=== PATIENT | female | born 1980 | race Caucasian/White ===

== ENCOUNTER 2018-08-12 08:41 | Inpatient (IN) | payer MEDICAID, OTHER ==
[2018-08-12] MEDS ORDERED: PROMETHAZINE HCL 25 MG/ML INJ IVP ONE (08:58)
[2018-08-12] MEDS ORDERED: NS 1,000 ML IV ONE ×3 (08:58→11:05)
--- NOTE | 2018-08-12 08:58 | EDPHY ---
H & P Stated Complaint: Fever, chills, nausea started about midnight, pt concerned for TSS Source: Patient Exam Limitations: No limitations - Personal History LMP (Females 10-55): Now - Medical/Surgical History Hx Asthma: No Hx Chronic Respiratory Disease: No Hx Diabetes: No Hx Cardiac Disease: No Hx Renal Disease: No Hx Cirrhosis: No Hx Alcoholism: No Hx HIV/AIDS: No Hx Splenectomy or Spleen Trauma: No Other PMH: ENDOMETRIOSIS - Social History Smoking Status: Never smoked Time Seen by Provider: 08/12/18 08:52 HPI/ROS: HPI: This is a 37-year-old female who presents with Chief Complaint: Generalized body aches, pelvic pain, rash Location: Body, pelvic Quality: Aches and pains Duration: Starting last night around midnight Signs and Symptoms: no fever, + chills, + nausea, no vomiting, no hematemesis, no blood in stool, no abdominal bloating, no diarrhea, no back pain, no urinary symptoms, no vaginal discharge, no indigestion, no chest pain, no shortness of breath Timing: Acute onset, constant Severity: Moderate to severe Context: Patient, G0, reports that around midnight she started to experience generalized body aches, no denies joint pain, accompanied by subjective fever and chills "all night long." She also had lower pelvic pain that was bilateral in nature and quite severe. She has a history of endometriosis and left ovary removal. She does not take any control pills. She is on day 4 of 5 of her menses. Last night before bed she placed a Super absorbent tampon and removed approximately 4 hr later. Upon removal it was "dry." She also woke up this morning with generalized redness to her torso. Denies hives, itchiness, easy bleeding, urinary symptoms, back pain, vaginal discharge. She is concerned that she may have toxic shock syndrome. She is followed by her primary care provider in [place], [place]. Modifying Factors: Took ibuprofen and Tylenol with mild transient relief of symptoms Comment: ROS: A comprehensive 10 system review of systems is otherwise negative aside from elements mentioned in the history of present illness. MEDICAL/SURGICAL/SOCIAL HISTORY: Medical history: Endometriosis, attention deficit hyperactivity disorder Surgical history: Left ovary removal Social history: Never smoked. Employed. Family history noncontributory. CONSTITUTIONAL: Well-developed, well-nourished, nontoxic-appearing adult white female, awake and alert, no obvious distress HEENT: Atraumatic and normocephalic, PERRL, EOMI. Nares patent; no rhinorrhea; no nasal mucosal edema. Tympanic membranes clear. Oropharynx clear, no oral lesions, no exudate and moist pink mucosa. Airway patent. No lymphadenopathy. No meningismus. Cardiovascular: Normal S1/S2, regular rate, regular rhythm, without murmur rub or gallop. PULMONARY/CHEST: Symmetrical and nontender. Clear to auscultation bilaterally. Good air movement. No accessory muscle usage. ABDOMEN: Soft, nondistended, mild generalized tenderness, no rebound, no guarding, no peritoneal signs, no masses or organomegaly. No CVAT. Bowel sounds heard x4 quadrants. PELVIC: normal external genitalia, normal cervix, cervical os was closed, no cervical motion tenderness, no adnexal mass, + scant blood tinged discharge, no dayna bleeding. The exam was performed with a semiconductors wafer breaker. EXTREMITIES: 2/2 pulses, strength 5/5, no deformities, no clubbing, no cyanosis or edema. NEUROLOGICAL: no focal neuro deficits. GCS 15. SKIN: Warm and dry, generalized pain in his to skin-primarily on the torso that blanches with palpation. No petechiae, no hives, no vesicles, no desquamation. Good capillary refill. (Irina Garcia) Constitutional: Initial Vital Signs Temperature (C) 37.5 C 08/12/18 08:45 Heart Rate 115 H 08/12/18 08:45 Respiratory Rate 16 08/12/18 08:45 Blood Pressure 88/62 L 08/12/18 08:45 O2 Sat (%) 98 08/12/18 08:45 O2 Delivery Mode Room Air O2 (L/minute) 97 Allergies/Adverse Reactions: No Known Allergies Allergy (Verified 08/12/18 08:43) Home Medications: Medication Instructions Recorded Dextroamphetamine/Amphetamine 15 mg PO DAILY 12/10/10 [Adderall Xr 30 mg Capsule] Acetaminophen [Tylenol 325mg (*)] 325 mg PO Q6 PRN 08/12/18 Ibuprofen [Motrin (*)] 200 mg PO DAILY PRN 08/12/18 Medical Decision Making - Diagnostics Imaging Results: Imaging Impressions Pelvic/Renal Ultrasound 08/12/18 08:58 Impression: 1. Single small uterine fibroid. 2. Status post left oophorectomy without evidence of residual/recurrent mass. Irina Garcai was notified of these findings by telephone at 10:20 AM on 08/12/2018 Chest X-Ray 08/12/18 10:55 Impression: Minimal airways disease. No pneumonia. ED Course/Re-evaluation: The patient was evaluated and managed by the physician creative assistant. I have reviewed this chart and I agree with the findings and plan of care as documented , as indicated by my signature. I am the secondary supervising physician. ( Roxann Cameron) Vital signs reviewed and show low blood pressure and tachycardia. Placed on cardiac cath lab manager. IV access, laboratory studies, blood cultures, lactic acid, urinalysis, pelvic ultrasound ordered Given 2 L normal saline, IV morphine 4 mg, IV Toradol 30 mg and IV promethazine 12.5 mg 0934: Notified by tech that lactic acid 1.5 0942: Laboratory studies reviewed. No signs of leukocytosis/anemia/ONI/ elevated LFTs/electrolyte imbalance/pancreatitis//coagulopathy. Sodium 137, potassium 3.4, creatinine 0.7, platelet count 131 K-chart review shows that platelet count was 177 in 2015. Is this a reactive process? No active signs of bleeding. 1019: Called by radiologist, Dr. Harrison, who reports pelvic ultrasound is unremarkable does show some fibroids but no ovarian torsion, no ectopic no free fluid, no retained products. 1019: Repeat vitals= blood pressure 103/63, heart rate 88, respiratory rate 16 , O2 sats 97% on room air, temperature 36.7 degree C 1022: ED decision to consult OBGYN. Spoke with Dr. Díaz who reviewed history , laboratory studies, pelvic ultrasound. She reports that she doubts that this is toxic shock syndrome and sounds like a viral illness. She advised no antibiotic prophylaxis and have patient call her office tomorrow for follow-up appointment early next week on Friday or Friday. 1038: Urinalysis shows 2+ ketones, 1+ LE, 2+ blood, trace bacteria and 3+ mucus ; sent for urine culture; IV Rocephin 1 g given 1105: Given another L of IV fluids for a total of 3 L normal saline, IV Zofran 4 mg 1035: Reassessed patient who feels comfortable going home with supportive care. Advised pelvic rest. Patient understands that if she has any worsening of symptoms she should return to the emergency room for further evaluation. 1043: Road Test performed for generalized weakness. Unable to ambulate to door without dizziness and generalized weakness. Pelvic swabs and pelvic exam performed. No signs of PID. 1050: ED decision to consult hospitalist for admission for nonspecific rash, viral syndrome accompanied by dizziness with thrombocytopenia. Doubt toxic shock syndrome as no fever, hypotension, end-organ damage. Spoke with Dr. Pena who kindly agrees to admit patient and provide further care. Requests chest x-ray which was ordered. No signs of sepsis. No headache or neck stiffness to indicate lumbar puncture. Pelvic swab results pending at time of consult. 1200: Chest x-ray my read shows no opacity, no effusion, no widened mediastinum. This patient was seen under the supervision of my secondary supervising physician. I evaluated care for this patient with attending. (Irina Garcia) Differential Diagnosis: Differential diagnosis includes but is not limited to viral syndrome, left this paresis, measles, Cham[place] spotted fever, staphylococcal toxic shock syndrome, endometriosis, chronic pelvic pain. (Irina Garcia) - Data Points Laboratory Results: Laboratory Results 08/12/18 09:05 08/12/18 09:05 08/12/18 08/12/18 08/12/18 10:00 09:05 09:05 WBC RBC Hgb Hct MCV MCH MCHC RDW Plt Count MPV Neut % (Auto) Lymph % (Auto) [place] % (Auto) Eos % (Auto) Baso % (Auto) Nucleat RBC Rel Count Absolute Neuts (auto) Absolute Lymphs (auto) Absolute Monos (auto) Absolute Eos (auto) Absolute Basos (auto) Absolute Nucleated RBC Immature Gran % Immature Gran # RBC/WBC/PLT Morphology Platelet Estimate PT INR APTT VBG Lactic Acid Sodium 137 mEq/L mEq/L (135-145) Potassium 3.4 mEq/L L mEq/L (3.5-5.2) Chloride 110 mEq/L mEq/L (97-110) Carbon Dioxide 20 mEq/l L mEq/l (22-31) Anion Gap 7 mEq/L mEq/L (6-14) BUN 11 mg/dL mg/dL (7-23) Creatinine 0.7 mg/dL mg/dL (0.6-1.0) Estimated GFR > 60 Glucose 107 mg/dL H mg/dL (70-100) Calcium 9.0 mg/dL mg/dL (8.5-10.4) Total Bilirubin 2.2 mg/dL H mg/dL (0.1-1.4) Conjugated Bilirubin 0.1 mg/dL mg/dL (0.0-0.5) Unconjugated Bilirubin 2.1 mg/dL H mg/dL (0.0-1.1) AST 19 IU/L IU/L (14-46) ALT 18 IU/L IU/L (9-52) Alkaline Phosphatase 48 IU/L IU/L (38-126) Creatine Kinase 48 IU/L IU/L (0-156) Total Protein 6.4 g/dL g/dL (6.3-8.2) Albumin 4.0 g/dL g/dL (3.5-5.0) Lipase 93 IU/L IU/L (23-300) Beta HCG, Qual NEGATIVE Urine Color Urine Appearance Urine pH Ur Specific [place] Urine Protein Urine Ketones Urine Blood Urine Nitrate Urine Bilirubin Urine Urobilinogen Ur Leukocyte Esterase Urine RBC Urine WBC Ur Epithelial Cells Urine Bacteria Urine Mucus Ur Culture Indicated? Cancelled Urine Glucose 08/12/18 08/12/18 08/12/18 09:05 09:05 09:05 WBC 7.78 10^3/uL 10^3/uL (3.80-9.50) RBC 5.29 10^6/uL 10^6/uL (4.18-5.33) Hgb 16.5 g/dL H g/dL (12.6-16.3) Hct 47.8 % H % (38.0-47.0) MCV 90.4 fL fL (81.5-99.8) MCH 31.2 pg pg (27.9-34.1) MCHC 34.5 g/dL g/dL (32.4-36.7) RDW 12.4 % % (11.5-15.2) Plt Count 131 10^3/uL L 10^3/uL (150-400) MPV 9.3 fL fL (8.7-11.7) Neut % (Auto) 96.0 % H % (39.3-74.2) Lymph % (Auto) 1.2 % L % (15.0-45.0) Jerome % (Auto) 1.8 % L % (4.5-13.0) Eos % (Auto) 0.4 % L % (0.6-7.6) Baso % (Auto) 0.1 % L % (0.3-1.7) Nucleat RBC Rel Count 0.0 % % (0.0-0.2) Absolute Neuts (auto) 7.47 10^3/uL H 10^3/uL (1.70-6.50) Absolute Lymphs (auto) 0.09 10^3/uL L 10^3/uL (1.00-3.00) Absolute Monos (auto) 0.14 10^3/uL L 10^3/uL (0.30-0.80) Absolute Eos (auto) 0.03 10^3/uL 10^3/uL (0.03-0.40) Absolute Basos (auto) 0.01 10^3/uL L 10^3/uL (0.02-0.10) Absolute Nucleated RBC 0.00 10^3/uL 10^3/uL (0-0.01) Immature Gran % 0.5 % % (0.0-1.1) Immature Gran # 0.04 10^3/uL 10^3/uL (0.00-0.10) RBC/WBC/PLT Morphology TNP Platelet Estimate TNP PT 14.3 SEC SEC (12.0-15.0) INR 1.16 (0.83-1.16) APTT 31.5 SEC SEC (23.0-38.0) VBG Lactic Acid 1.5 mmol/L mmol/L (0.7-2.1) Sodium Potassium Chloride Carbon Dioxide Anion Gap BUN Creatinine Estimated GFR Glucose Calcium Total Bilirubin Conjugated Bilirubin Unconjugated Bilirubin AST ALT Alkaline Phosphatase Creatine Kinase Total Protein Albumin Lipase Beta HCG, Qual Urine Color Urine Appearance Urine pH Ur Specific [place] Urine Protein Urine Ketones Urine Blood Urine Nitrate Urine Bilirubin Urine Urobilinogen Ur Leukocyte Esterase Urine RBC Urine WBC Ur Epithelial Cells Urine Bacteria Urine Mucus Ur Culture Indicated? Urine Glucose 08/12/18 08:58 WBC RBC Hgb Hct MCV MCH MCHC RDW Plt Count MPV Neut % (Auto) Lymph % (Auto) [place] % (Auto) Eos % (Auto) Baso % (Auto) Nucleat RBC Rel Count Absolute Neuts (auto) Absolute Lymphs (auto) Absolute Monos (auto) Absolute Eos (auto) Absolute Basos (auto) Absolute Nucleated RBC Immature Gran % Immature Gran # RBC/WBC/PLT Morphology Platelet Estimate PT INR APTT VBG Lactic Acid Sodium Potassium Chloride Carbon Dioxide Anion Gap BUN Creatinine Estimated GFR Glucose Calcium Total Bilirubin Conjugated Bilirubin Unconjugated Bilirubin AST ALT Alkaline Phosphatase Creatine Kinase Total Protein Albumin Lipase Beta HCG, Qual Urine Color YELLOW Urine Appearance HAZY Urine pH 5.0 (5.0-7.5) Ur Specific [place] 1.028 (1.002-1.030) Urine Protein 1+ H (NEGATIVE) Urine Ketones 2+ H (NEGATIVE) Urine Blood 2+ H (NEGATIVE) Urine Nitrate NEGATIVE (NEGATIVE) Urine Bilirubin NEGATIVE (NEGATIVE) Urine Urobilinogen NEGATIVE EU EU (0.2-1.0) Ur Leukocyte Esterase 1+ H (NEGATIVE) Urine RBC NONE SEEN /hpf /hpf (0-3) Urine WBC 5-10 /hpf H /hpf (0-3) Ur Epithelial Cells TRACE /lpf /lpf (NONE-1+) Urine Bacteria TRACE /hpf H /hpf (NONE SEEN) Urine Mucus 3+ /lpf H /lpf (NONE-1+) Ur Culture Indicated? Urine Glucose NEGATIVE (NEGATIVE) Medications Given: Discontinued Medications Sodium Chloride (Ns) 1,000 mls @ 0 mls/hr IV EDNOW ONE; Wide Open PRN Reason: Protocol Stop: 08/12/18 08:59 Last Admin: 08/12/18 09:15 Dose: 1,000 mls Sodium Chloride (Ns) 1,000 mls @ 0 mls/hr IV EDNOW ONE; Wide Open PRN Reason: Protocol Stop: 08/12/18 08:59 Last Admin: 08/12/18 09:15 Dose: 1,000 mls Ceftriaxone Sodium/Dextrose (Rocephin 1 Gm (Premix)) 50 mls @ 100 mls/hr IV EDNOW ONE PRN Reason: Protocol Stop: 08/12/18 11:25 Last Admin: 08/12/18 11:14 Dose: 50 mls Sodium Chloride (Ns) 1,000 mls @ 0 mls/hr IV EDNOW ONE; Wide Open PRN Reason: Protocol Stop: 08/12/18 11:06 Last Admin: 08/12/18 11:12 Dose: 1,000 mls Ketorolac Tromethamine (Toradol) 30 mg IVP ONCE ONE Stop: 08/12/18 11:19 Last Admin: 08/12/18 11:28 Dose: 30 mg Morphine Sulfate (Morphine) 6 mg IVP EDNOW ONE Stop: 08/12/18 08:59 Last Admin: 08/12/18 09:15 Dose: 2 mg Ondansetron HCl (Zofran) 4 mg IVP EDNOW ONE Stop: 08/12/18 11:06 Last Admin: 08/12/18 11:12 Dose: 4 mg Promethazine HCl (Phenergan) 12.5 mg IVP EDNOW ONE Stop: 08/12/18 08:59 Last Admin: 08/12/18 09:15 Dose: 12.5 mg Departure - Departure Disposition: [facility] Acute Clinical Impression: Rash and nonspecific skin eruption, Nonspecific syndrome suggestive of viral illness, Thrombocytopenia, Generalized weakness, Bacteria in urine Condition: Fair
[2018-08-12 09:40] LABS: CREATINE KINASE 48 IU/L (0-156)
[2018-08-12 09:41] LABS: INR 1.16 (0.83-1.16); PROTIME(PATIENT) 14.3 SEC (12.0-15.0)
[2018-08-12 09:53] LABS: PLATELET COUNT 131 10^3/uL (150-400)
[2018-08-12] MEDS ORDERED: ONDANSETRON 4 MG/2 ML VIAL IVP ONE (11:05)
[2018-08-12] MEDS ORDERED: KETOROLAC 30 MG/1 ML SDV IVP ONE (11:18)
[2018-08-12] MEDS ORDERED: KETOROLAC 30 MG/1 ML SDV ONE (11:26)
--- NOTE | 2018-08-12 11:56 | PDGENHP ---
History and Physical - Chief Complaint fever, chills, rigors - History of Present Illness Patient is a 37-year-old female with past medical history of endometriosis and attention deficit disorder who presents to the emergency room with concerns that she has toxic shock syndrome. Patient is on day for 5 of her menstrual cycle and last night inserted a larger than normal, super absorbent tampon. She removed the tampon approximately 4 hr later and felt like it was rotary drier operator than normal. Removing the dry tampon gave her an odd sensation although she could not say it was overt pain. Then this morning she had fevers, chills, and rigors. She has chronic abdominal pain due to her endometriosis and this was not any worse than normal. She has denied any dysuria although she does feel like she has been having some urinary frequency. She denied any hematuria, she denied any diarrhea constipation or other gastrointestinal symptoms. Also, she has noted that her skin has turned red since this morning and feels like she has a mild sunburn. She has some mild nausea but no vomiting. Otherwise she denied any cough, chest pain, or other symptoms. History Information - Allergies/Home Medication List Allergies/Adverse Reactions: No Known Allergies Allergy (Verified 08/12/18 08:43) Home Medications: Dextroamphetamine/Amphetamine [Adderall Xr 30 mg Capsule] 15 mg PO DAILY [Last Taken 08/11/18] Acetaminophen [Tylenol 325mg (*)] 325 mg PO Q6 PRN 08/12/18 [Last Taken Unknown] Ibuprofen [Motrin (*)] 200 mg PO DAILY PRN 08/12/18 [Last Taken Unknown] I have personally reviewed and updated: family history, medical history, social history, surgical history - Past Medical History Additional medical history: endometriosis, ADD - Surgical History Additional surgical history: oophorectomy, IUD perforation requiring surgical removal. - Family History Positive for: non-pertinent - Social History Smoking Status: Never smoked Alcohol Use: Occasionally Drug Use: None Review of Systems Review of Systems: ROS: 10pt was reviewed & negative except for what was stated in HPI & below Physical Exam Physical Exam: Temp Pulse Resp BP Pulse Ox 36.7 C 88 16 103/63 97 08/12/18 10:06 08/12/18 10:06 08/12/18 10:06 08/12/18 10:06 08/12/18 10:06 Constitutional: no apparent distress Eyes: scleral injection Ears, Nose, Mouth, Throat: dry mucous membranes Cardiovascular: regular rate and rhythym Respiratory: no respiratory distress, no rales or rhonchi, clear to auscultation Gastrointestinal: normoactive bowel sounds, soft, non-tender abdomen Genitourinary: no bladder fullness Skin: erythema, other (Mild erythroderma) Musculoskeletal: full muscle strength, no muscle tenderness, normal joint ROM Neurologic: AAOx3 Psychiatric: interacting appropriately Lymph, Heme, Immunologic: no cervical LAD Lab Data & Imaging Review 08/12/18 09:05 08/12/18 09:05 WBC 7.78 10^3/uL (3.80-9.50) 08/12/18 09:05 RBC 5.29 10^6/uL (4.18-5.33) 08/12/18 09:05 Hgb 16.5 g/dL (12.6-16.3) H 08/12/18 09:05 Hct 47.8 % (38.0-47.0) H 08/12/18 09:05 MCV 90.4 fL (81.5-99.8) 08/12/18 09:05 MCH 31.2 pg (27.9-34.1) 08/12/18 09:05 MCHC 34.5 g/dL (32.4-36.7) 08/12/18 09:05 RDW 12.4 % (11.5-15.2) 08/12/18 09:05 Plt Count 131 10^3/uL (150-400) L 08/12/18 09:05 MPV 9.3 fL (8.7-11.7) 08/12/18 09:05 Neut % (Auto) 96.0 % (39.3-74.2) H 08/12/18 09:05 Lymph % (Auto) 1.2 % (15.0-45.0) L 08/12/18 09:05 [place] % (Auto) 1.8 % (4.5-13.0) L 08/12/18 09:05 Eos % (Auto) 0.4 % (0.6-7.6) L 08/12/18 09:05 Baso % (Auto) 0.1 % (0.3-1.7) L 08/12/18 09:05 Nucleat RBC Rel Count 0.0 % (0.0-0.2) 08/12/18 09:05 Absolute Neuts (auto) 7.47 10^3/uL (1.70-6.50) H 08/12/18 09:05 Absolute Lymphs (auto) 0.09 10^3/uL (1.00-3.00) L 08/12/18 09:05 Absolute Monos (auto) 0.14 10^3/uL (0.30-0.80) L 08/12/18 09:05 Absolute Eos (auto) 0.03 10^3/uL (0.03-0.40) 08/12/18 09:05 Absolute Basos (auto) 0.01 10^3/uL (0.02-0.10) L 08/12/18 09:05 Absolute Nucleated RBC 0.00 10^3/uL (0-0.01) 08/12/18 09:05 Immature Gran % 0.5 % (0.0-1.1) 08/12/18 09:05 Immature Gran # 0.04 10^3/uL (0.00-0.10) 08/12/18 09:05 RBC/WBC/PLT Morphology TNP 08/12/18 09:05 Platelet Estimate TNP 08/12/18 09:05 PT 14.3 SEC (12.0-15.0) 08/12/18 09:05 INR 1.16 (0.83-1.16) 08/12/18 09:05 APTT 31.5 SEC (23.0-38.0) 08/12/18 09:05 VBG Lactic Acid 1.5 mmol/L (0.7-2.1) 08/12/18 09:05 Sodium 137 mEq/L (135-145) 08/12/18 09:05 Potassium 3.4 mEq/L (3.5-5.2) L 08/12/18 09:05 Chloride 110 mEq/L (97-110) 08/12/18 09:05 Carbon Dioxide 20 mEq/l (22-31) L 08/12/18 09:05 Anion Gap 7 mEq/L (6-14) 08/12/18 09:05 BUN 11 mg/dL (7-23) 08/12/18 09:05 Creatinine 0.7 mg/dL (0.6-1.0) 08/12/18 09:05 Estimated GFR > 60 08/12/18 09:05 Glucose 107 mg/dL (70-100) H 08/12/18 09:05 Calcium 9.0 mg/dL (8.5-10.4) 08/12/18 09:05 Total Bilirubin 2.2 mg/dL (0.1-1.4) H 08/12/18 09:05 Conjugated Bilirubin 0.1 mg/dL (0.0-0.5) 08/12/18 09:05 Unconjugated Bilirubin 2.1 mg/dL (0.0-1.1) H 08/12/18 09:05 AST 19 IU/L (14-46) 08/12/18 09:05 ALT 18 IU/L (9-52) 08/12/18 09:05 Alkaline Phosphatase 48 IU/L (38-126) 08/12/18 09:05 Creatine Kinase 48 IU/L (0-156) 08/12/18 09:05 Total Protein 6.4 g/dL (6.3-8.2) 08/12/18 09:05 Albumin 4.0 g/dL (3.5-5.0) 08/12/18 09:05 Lipase 93 IU/L (23-300) 08/12/18 09:05 Beta HCG, Qual NEGATIVE 08/12/18 09:05 Urine Color YELLOW 08/12/18 08:58 Urine Appearance HAZY 08/12/18 08:58 Urine pH 5.0 (5.0-7.5) 08/12/18 08:58 Ur Specific [place] 1.028 (1.002-1.030) 08/12/18 08:58 Urine Protein 1+ (NEGATIVE) H 08/12/18 08:58 Urine Ketones 2+ (NEGATIVE) H 08/12/18 08:58 Urine Blood 2+ (NEGATIVE) H 08/12/18 08:58 Urine Nitrate NEGATIVE (NEGATIVE) 08/12/18 08:58 Urine Bilirubin NEGATIVE (NEGATIVE) 08/12/18 08:58 Urine Urobilinogen NEGATIVE EU (0.2-1.0) 08/12/18 08:58 Ur Leukocyte Esterase 1+ (NEGATIVE) H 08/12/18 08:58 Urine RBC NONE SEEN /hpf (0-3) 08/12/18 08:58 Urine WBC 5-10 /hpf (0-3) H 08/12/18 08:58 Ur Epithelial Cells TRACE /lpf (NONE-1+) 08/12/18 08:58 Urine Bacteria TRACE /hpf (NONE SEEN) H 08/12/18 08:58 Urine Mucus 3+ /lpf (NONE-1+) H 08/12/18 08:58 Urine Glucose NEGATIVE (NEGATIVE) 08/12/18 08:58 Assessment & Plan Assessment: 37-year-old female with past medical history of endometriosis who presents to the emergency room with concerns that she has toxic shock syndrome. Nonspecific syndrome suggestive of viral illness- case was discussed with the emergency room physician and OBGYN was consulted who does not feel that this represents toxic shock syndrome. Patient does not meet criteria for toxic shock syndrome, notably she is not hypotensive and has no end-organ damage. She does not have a fever, white count or other objective indicators of infection. Her urine is possibly suggestive of a urinary tract infection, but and a pelvic ultrasound was normal and a pelvic exam revealed no cervical motion tenderness. She does have a generalized erythematous rash which could be consistent with toxic shock syndrome but has none of the other symptoms. She was given a g of Rocephin in the emergency room for a potential urinary tract infection. -urine cultures -blood cultures -intravenous saline -supportive care -monitor for worsening symptoms Rash and nonspecific skin eruption (Acute)- generalized erythematous rash more likely due to viral illness rather than toxic shock syndrome. Supportive care for now Thrombocytopenia- platelets of 131. Is currently on her menses. But no history of thrombocytopenia. Could be acute phase reactant in the setting of illness -. Monitor for drop -hold heparin Hyperbilirubinemia- has had an elevated bilirubin on previous admissions. No abdominal pain. Monitor for now. could be undiagnosed Gilbert's. cystitis- patient complaining of urinary frequency but no dayna dysuria. Urine is suggestive of possible underlying infection. Given Rocephin in the emergency room. -continue Rocephin -monitor cultures Prophylaxis- SCDs, ambulate three times daily Fluids- intravenous saline Electrolytes- within normal limits Nutrition- regular diet Cor- full code Dispo- observation for closer monitoring and treatment for cystitis
[2018-08-12] MEDS ORDERED: HYDROCODONE/APAP 5/325 TAB PO PRN (12:16)
[2018-08-12] MEDS ORDERED: ONDANSETRON DISINTEGRATING 4 MG TAB PO PRN (12:16)
[2018-08-12] MEDS ORDERED: ONDANSETRON 4 MG/2 ML VIAL IVP PRN (12:16)
[2018-08-12] MEDS ORDERED: NS 1,000 ML IV SCH (12:30)
[2018-08-12] MEDS ORDERED: NS BOLUS 1000 ML (Wide open) IV ONE (14:00)
[2018-08-12 14:51] LABS: INR 1.5 (0.83-1.16); PROTIME(PATIENT) 17.4 SEC (12.0-15.0)
[2018-08-12] MEDS: KETOROLAC 15 MG/1 ML SDV IVP PRN (17:51)
[2018-08-12] MEDS: ACETAMINOPHEN 325 MG TAB PO PRN (21:04)
[2018-08-12] MEDS: CLINDAMYCIN 900 MG/DEXTROSE 50 ML IV SCH (22:10)
[2018-08-13 04:30] LABS: PLATELET COUNT 117 10^3/uL (150-400)
[2018-08-13] MEDS: CLINDAMYCIN 900 MG/DEXTROSE 50 ML IV SCH (06:01)
[2018-08-13] MEDS: KETOROLAC 15 MG/1 ML SDV IVP PRN ×2 (09:25→22:34)
[2018-08-13 11:47] LABS: GC AMPLIFICATION GENPROBE NEGATIVE (NEGATIVE)
--- NOTE | 2018-08-13 15:35 | ASMTCMCOM ---
CM Note CM Note Notes: Patient admitted for viral syndrome, under observation at this time. There are no CM needs identified. CM available should needs arise. Plan: Anticipate independent. Date Signed: 08/13/2018 03:34 PM Electronically Signed By:Fely Yang RN
--- NOTE | 2018-08-13 16:15 | HOSPPROG ---
Hospitalist Progress Note Assessment/Plan: 37-year-old female with past medical history of endometriosis who presents to the emergency room with concerns that she has toxic shock syndrome. Nonspecific syndrome suggestive of viral illness- case was discussed with the emergency room physician and OBGYN was consulted who does not feel that this represents toxic shock syndrome. she does not meet criteria for TSS. Interestingly her urine cultures did grow out staph aureus. Was started on rocephin and clindamycin yesterday. clindamycin held today. -urine cultures -blood cultures -intravenous saline -supportive care -monitor for worsening symptoms Rash and nonspecific skin eruption (Acute)- generalized erythematous rash more likely due to viral illness rather than toxic shock syndrome. Supportive care for now Thrombocytopenia- platelets of 131. Is currently on her menses. But no history of thrombocytopenia. Could be acute phase reactant in the setting of illness -. Monitor for drop -hold heparin Hyperbilirubinemia- has had an elevated bilirubin on previous admissions. No abdominal pain. resolved overnight. cystitis- patient complaining of urinary frequency but no dayna dysuria. Urine is suggestive of possible underlying infection. Given Rocephin in the emergency room. Given clinda yesterday given her hypotension, erythroderma and transaminitis which were concerning. Her urine grew out staph aureus. -continue Rocephin -monitor cultures -any decline restart clinda add vanco and consult ID Prophylaxis- SCDs, ambulate three times daily Fluids- intravenous saline Electrolytes- within normal limits Nutrition- regular diet Cor- full code Dispo- observation for closer monitoring and treatment for cystitis Subjective: still quite tired today. not hungry otherwise no complaints. Objective: Vital Signs Temp Pulse Resp BP Pulse Ox 36.7 C 79 16 105/61 98 08/13/18 16:00 08/13/18 16:00 08/13/18 16:00 08/13/18 16:00 08/13/18 16:00 Laboratory Results 08/13/18 04:00 08/13/18 04:00 08/12/18 08/13/18 08/14/18 05:59 05:59 05:59 Intake Total 3700 2405 Balance 3700 2405 PT 17.4 SEC (12.0-15.0) H 08/12/18 14:34 INR 1.50 (0.83-1.16) H 08/12/18 14:34 - Physical Exam Constitutional: no apparent distress, appears nourished, not in pain Eyes: PERRL, anicteric sclera, EOMI Ears, Nose, Mouth, Throat: moist mucous membranes, hearing normal, ears appear normal, no oral mucosal ulcers Cardiovascular: regular rate and rhythym, no murmur, rub, or gallop Respiratory: no respiratory distress, no rales or rhonchi, clear to auscultation Gastrointestinal: normoactive bowel sounds, soft, non-tender abdomen, no palpable masses Genitourinary: no bladder fullness, no bladder tenderness, no renal bruits Skin: no rashes or abrasions, no fluctuance, no induration, other (fading erythema to chest and stomach and baack) Musculoskeletal: full muscle strength, no muscle tenderness, normal joint ROM Neurologic: AAOx3, sensation intact bilaterally Psychiatric: interacting appropriately, not anxious, not encephalopathic, thought process linear Lymph, Heme, Immunologic: no cervical LAD, no supraclavicular LAD ICD10 Worksheet Patient Problems: Problems Problem Status Onset Bacteria in urine Acute Generalized weakness Acute Nonspecific syndrome suggestive of viral illness Acute Rash and nonspecific skin eruption Acute Thrombocytopenia Acute
[2018-08-13] MEDS: ACETAMINOPHEN 325 MG TAB PO PRN (20:13)
[2018-08-14 05:41] LABS: PLATELET COUNT 100 10^3/uL (150-400)
[2018-08-14] MEDS: ACETAMINOPHEN 325 MG TAB PO PRN (10:28)
[2018-08-14 11:48] VITALS: BP 112/75
--- NOTE | 2018-08-14 13:09 | ASMTCMCOM ---
CM Note CM Note Notes: PLAN: Discharge to home independently without needs. Date Signed: 08/14/2018 01:08 PM Electronically Signed By:Eryn Ham
--- NOTE | 2018-08-14 13:10 | ASMTLACE ---
TORO Length of stay for Answers: 1 day current admission Acuity / Level of Answers: No Care: Did the patient have an inpatient admission? Comorbidities - select Answers: Other Notes: Endometriosis all that apply # of Emergency department Answers: 1-2 visits in the last 6 months Score: 3 Date Signed: 08/14/2018 01:09 PM Electronically Signed By:Eryn Ham
--- NOTE | 2018-08-14 19:23 | PDMN ---
Medical Necessity Medical necessity: Change to IP, as of 08/13/18, per MD & MCG M-300; los >2 mn for ongoing management of cystitis; requiring further monitoring, IV abx & possible ID consult
--- NOTE | 2018-08-15 08:24 | PDDCSUM ---
Discharge Summary Discharge Summary: Discharge diagnosis sepsis possible toxic shock syndrome staph aureus cystitis erythroderma
== END 2018-08-14 12:30 | disposition home or self-care (01) | DRG 720 ==
LOC: INTOOBSV 11:07 → F1N 13:07 → OBSVTOIN 08-13 16:28
PROVIDERS: ADMIT Internal Medicine; ATTEND Internal Medicine
DX: A41.01 Sepsis due to Methicillin susceptible Staphylococcus aureus (principal); A48.3 Toxic shock syndrome; D69.6 Thrombocytopenia, unspecified; N30.90 Cystitis, unspecified without hematuria; E86.9 Volume depletion, unspecified; F98.8 Other specified behavioral and emotional disorders with onset usually occurring in childhood and adolescence; R21 Rash and other nonspecific skin eruption
CPT/HCPCS: 96365; G0378; J0696; J1885; J2270; J2405; J2550